=== PATIENT | female | born 1960 | race Caucasian/White ===

== ENCOUNTER → 2025-02-27 08:07 | Outpatient (REF) | payer BC, SELFPAY ==
--- NOTE | 2025-02-27 13:40 | CARDSERVDEF ---
Echocardiogram with Definity completed after protocol screening completed. Allergies verified.
Patent IV site: ___right antecubital__
IV site flushed with 0.9% NaCl pre and post administration.
Diluted bolus method utilized to enhance visualization of ventricular hamilton.
Total volume given: __3__ mL
Patient tolerated all procedures well without complications.
== END ==
LOC: HWRCS 08:07
PROVIDERS: ATTENDING PHYSICIAN Internal Medicine; FAMILY PHYSICIAN Family Medicine
DX: I10 Essential (primary) hypertension (principal); R00.2 Palpitations; F17.210 Nicotine dependence, cigarettes, uncomplicated
CPT/HCPCS: 93306; Q9957